=== PATIENT | male | born 1985 | race Caucasian/White ===

== ENCOUNTER 2017-10-29 13:45 | Emergency (ER) | payer OTHER ==
[~2017-10-29] VITALS: Ht 172.7 cm; Wt 72.6 kg
[~2017-10-29 13:45] MED LIST: ORPH100T PO; VOLTAREM 50 MG PO
== END 2017-10-29 17:51 | disposition home or self-care (01) ==
LOC: ER 13:45
DX: S91.321A Laceration with foreign body, right foot, initial encounter (principal); W45.8XXA Other foreign body or object entering through skin, initial encounter; Y93.89 Activity, other specified; Y92.89 Other specified places as the place of occurrence of the external cause; Y99.8 Other external cause status

== ENCOUNTER → 2018-12-17 16:55 | Outpatient (CLI) | payer OTHER | END | disposition home or self-care (01) | LOC: RAD 16:55 | DX: J01.90 Acute sinusitis, unspecified (principal) ==

== ENCOUNTER → 2019-02-19 16:00 | Outpatient (CLI) | payer OTHER | END | disposition home or self-care (01) | LOC: RAD 16:00 | DX: M77.8 Other enthesopathies, not elsewhere classified (principal) ==

== ENCOUNTER 2020-07-08 15:51 | Outpatient (CLI) | payer OTHER | END 2020-07-08 16:00 | disposition home or self-care (01) | LOC: RAD 15:51 | PROVIDERS: ATTEND Specialist | DX: R07.89 Other chest pain (principal) ==

== ENCOUNTER 2024-06-14 15:44 | Outpatient (CLI) | payer OTHER ==
[~2024-06-14 15:44] MED LIST changes: +BENADRYL ALLERG25 MG PO; +CYCLOBENZAPRINE10 MG PO; +KETO10TA2 PO; +MEDROLPACK PO; +NORFLEX100MG PO
== END 2024-06-14 15:45 | disposition home or self-care (01) ==
LOC: RAD 15:44
PROVIDERS: ATTEND Specialist
DX: S80.01XA Contusion of right knee, initial encounter (principal)

== ENCOUNTER 2024-07-18 07:12 | Outpatient (CLI) | payer OTHER | END 2024-07-18 07:24 | disposition home or self-care (01) | LOC: MRI 07:12 | DX: S83.511A Sprain of anterior cruciate ligament of right knee, initial encounter (principal); M17.11 Unilateral primary osteoarthritis, right knee | CPT/HCPCS: 73721 ==